=== PATIENT | female | born 1965 | race American Indian/Alaskan Native ===

== ENCOUNTER 2018-10-31 07:10 | Emergency (ER) | payer SELFPAY ==
[~2018-10-31] VITALS: Ht 162.6 cm; Wt 80.7 kg
[2018-10-31] MEDS ORDERED: SODIUM CHLORIDE 0.9% 1,000 ML IVB ONE (08:09)
[2018-10-31] MEDS ORDERED: ONDANSETRON HCL 4 MG/2 ML VIAL IV ONE (08:15)
[2018-10-31] MEDS ORDERED: KETOROLAC TROMETH 30 MG/ML 1ML VIAL IV ONE (08:15)
[2018-10-31 08:54] LABS: Urine Bacteria NONE SEEN /hpf (None Seen); Urine Blood Negative /uL (Negative); Urine Specific Gravity 1.009 (1.001-1.035); Urine WBC 1 /hpf (0 - 5)
[2018-10-31 09:28] LABS: Basophils # (auto) 0.1 uL; Basophils % (auto) 0.8 % (0.0-2.0); Eosinophils # (auto) 0.4 uL; Hematocrit 39.3 % (36.0-46.0); Hemoglobin 13.1 g/dL (12.2-16.2); Lymphocytes # (auto) 1.5 uL; Mean Corpuscular Hemoglobin 30.2 pg (28.0-32.0); Mean Corpuscular Hgb Conc. 33.4 g/dL (32.0-36.0); Mean Corpuscular Volume 90.2 fL (80.0-100.0); Monocytes # (auto) 0.5 uL; Monocytes % (auto) 7.3 % (0.0-12.0); Neutrophils # (auto) 4.8 uL; Neutrophils % (auto) 65.9 % (37.0-80.0); Nucleated Red Blood Cells % 0.1 %; Platelet Count (auto) 373 10^3/uL (140-450); Red Blood Cells 4.36 10^6/uL (4.0-5.20); Red Cell Distribution Width 15.9 % (11.8-14.3); White Blood Cell 7.3 10^3/uL (4.4-10.8)
[2018-10-31 09:45] VITALS: BP 128/88
[2018-10-31 09:45] LABS: Albumin 3.3 g/dL (3.4-5.0); Calcium 9.5 mg/dL (8.5-10.1); Potassium 3.6 mmol/L (3.5-5.1)
[2018-10-31 09:48] LABS: BUN/Creatinine Ratio 18.9; Bilirubin, Total 0.1 mg/dL (0.2-1.0); Total Protein 7.4 g/dL (6.4-8.2)
== END 2018-10-31 10:24 | disposition home or self-care (01) ==
LOC: ER 07:10
DX: N39.0 Urinary tract infection, site not specified (principal); R11.2 Nausea with vomiting, unspecified; E11.9 Type 2 diabetes mellitus without complications; I10 Essential (primary) hypertension; Z88.2 Allergy status to sulfonamides; Z88.1 Allergy status to other antibiotic agents
CPT/HCPCS: 36415; 71046; 74176; 80053; 81001; 82962; 85025; 94761; 96361; 96374; 96375; 99284; J1885; J2405; J7030

== ENCOUNTER 2019-08-17 07:25 | Emergency (ER) | payer OTHER ==
[~2019-08-17] VITALS: Ht 162.6 cm; Wt 81.6 kg
[2019-08-17 07:37] VITALS: BP 138/96
== END 2019-08-17 11:20 | disposition home or self-care (01) ==
LOC: EDBD 07:25 → ER 07:25
DX: S16.1XXA Strain of muscle, fascia and tendon at neck level, initial encounter (principal); I10 Essential (primary) hypertension; E11.9 Type 2 diabetes mellitus without complications; V49.9XXA Car occupant (driver) (passenger) injured in unspecified traffic accident, initial encounter; Y93.89 Activity, other specified; Y92.89 Other specified places as the place of occurrence of the external cause; Y99.8 Other external cause status
CPT/HCPCS: 71046; 72125

== ENCOUNTER 2021-10-15 09:42 | Emergency (ER) | payer OTHER ==
[~2021-10-15] VITALS: Ht 162.6 cm; Wt 73.5 kg
[2021-10-15] MEDS ORDERED: HYDROcodone-ACET 5/325MG TAB PO ONE (10:15)
[2021-10-15 10:33] LABS: Basophils # (auto) 0.1 10 ^3/uL (0-0.2); Basophils % (auto) 1.2 % (0.0-2.0); Eosinophils # (auto) 0.2 10 ^3/uL (0-0.8); Eosinophils % (auto) 2.5 % (0.0-7.0); Hematocrit 34.4 % (36.0-46.0); Hemoglobin 11.3 g/dL (12.2-16.2); Lymphocytes % (auto) 15.9 % (10.0-50.0); Mean Corpuscular Hgb Conc. 32.9 g/dL (32.0-36.0); Mean Corpuscular Volume 87.9 fL (80.0-100.0); Monocytes # (auto) 0.5 10 ^3/uL (0-1.3); Monocytes % (auto) 8.1 % (0.0-12.0); Neutrophils # (auto) 4.7 10 ^3/uL (1.6-8.6); Neutrophils % (auto) 72.3 % (37.0-80.0); Red Blood Cells 3.91 10^6/uL (4.0-5.20); Red Cell Distribution Width 17.2 % (11.8-14.3); White Blood Cell 6.5 10^3/uL (4.4-10.8)
[2021-10-15 11:02] LABS: Albumin 3.1 g/dL (3.4-5.0); Calcium 9.6 mg/dL (8.5-10.1)
[2021-10-15 11:08] LABS: BUN/Creatinine Ratio 18.1; Bilirubin, Total 0.5 mg/dL (0.2-1.0); Total Protein 7.3 g/dL (6.4-8.2)
[2021-10-15 11:37] LABS: Potassium 4.2 mmol/L (3.5-5.1)
[2021-10-15] MEDS ORDERED: METOCLOPRAMIDE HCL 5MG/ml INJ 2ml VIAL IV ONE (12:30)
[2021-10-15] MEDS ORDERED: ALUM & MAG HYDROX-SIMETH LIQ(MAALOX) 30 ML PO ONE (12:30)
[2021-10-15] MEDS ORDERED: LIDOCAINE VISCOUS 2% 15ML UD PO ONE (12:30)
[2021-10-15] MEDS ORDERED: METO-281 PO (16:46)
[2021-10-15 17:36] VITALS: BP 137/79
== END 2021-10-15 17:37 | disposition home or self-care (01) ==
LOC: ER 09:42
DX: K58.0 Irritable bowel syndrome with diarrhea (principal); E11.9 Type 2 diabetes mellitus without complications; I10 Essential (primary) hypertension; Z90.49 Acquired absence of other specified parts of digestive tract; Z88.2 Allergy status to sulfonamides; Z88.1 Allergy status to other antibiotic agents
CPT/HCPCS: 36415; 80053; 84484; 85025; 96374; 99285; J2765

== ENCOUNTER 2024-05-14 08:10 | Emergency (ER) | payer OTHER ==
[~2024-05-14] VITALS: Ht 162.6 cm; Wt 81.3 kg
[~2024-05-14 08:10] MED LIST: METO-281 PO
[2024-05-14 08:31] VITALS: BP 170/82; PULSE 92; RESP 16; O2SAT 98
[2024-05-14] MEDS: ACETAMINOPHEN 500 MG TAB PO ONE (08:51)
[2024-05-14] MEDS ORDERED: METH-1182 PO (09:42)
[2024-05-14] MEDS ORDERED: IBUP-1456 PO (09:42)
[2024-05-14 09:50] VITALS: TEMP 97.7
== END 2024-05-14 09:50 | disposition home or self-care (01) ==
LOC: EDUNIT# 08:10 → EDBD 08:10 → ER 08:10
DX: S46.812A Strain of other muscles, fascia and tendons at shoulder and upper arm level, left arm, initial encounter (principal); S76.012A Strain of muscle, fascia and tendon of left hip, initial encounter; S83.8X2A Sprain of other specified parts of left knee, initial encounter; I10 Essential (primary) hypertension; E11.9 Type 2 diabetes mellitus without complications; Z86.2 Personal history of diseases of the blood and blood-forming organs and certain disorders involving the immune mechanism; Z90.49 Acquired absence of other specified parts of digestive tract; Z88.2 Allergy status to sulfonamides; Z88.8 Allergy status to other drugs, medicaments and biological substances; Z79.1 Long term (current) use of non-steroidal anti-inflammatories (NSAID); Z79.899 Other long term (current) drug therapy; W01.0XXA Fall on same level from slipping, tripping and stumbling without subsequent striking against object, initial encounter; Y93.89 Activity, other specified; Y92.89 Other specified places as the place of occurrence of the external cause; Y99.0 Civilian activity done for income or pay
CPT/HCPCS: 73030; 73502; 73562

== ENCOUNTER 2024-08-19 12:07 | Emergency (ER) | payer OTHER ==
[~2024-08-19] VITALS: Ht 162.6 cm; Wt 80.9 kg
[~2024-08-19 12:07] MED LIST changes: +IBUP-1456 PO; +METH-1182 PO
--- NOTE | 2024-08-19 13:37 | ED.PDOC ---
History of Present Illness HPI Comments 59-year-old female with PMHx DM, HTN, Thyroid presents with a chief complaint of eye itchiness and throat swelling s/p exposure to allergen and hyperglycemia x 1 hour. 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 Patient reports that they called EMS and the swelling started to subside and when they checked her sugar, she was at 479. Patient is reporting that right now she has eye itchiness and some throat swelling, but is sating at 98% and able to speak in full complete sentences. No other symptoms or modifying factors present at this time. Chief Complaint: Hyperglycemia Time Seen by MD: 13:29 Primary Care Provider: MAGALI Chaney Notes: Nurses Notes, Medications, Allergies Allergies: Coded Allergies: Levothyroxine (Verified Adverse Reaction, Intermediate, 10/31/18) Sulfa Antibiotics (Verified Adverse Reaction, Mild, 10/31/18) Home Meds Active Scripts Methylprednisolone (Medrol Dosepak) 4 Mg Prince, 4 MG PO UD, #21 TAB UAD Prov:KANNAN VILLA MD 08/19/24 Methocarbamol (Methocarbamol) 750 Mg Tab, 750 MG PO BID, #20 TAB Prov:LLOYD HU 05/14/24 Ibuprofen (Ibuprofen) 800 Mg Tab, 1 TAB PO TID, #30 TAB Prov:LLOYD HU 05/14/24 Metoclopramide Hcl (Reglan) 10 Mg Tab, 10 MG PO QID PRN for 3 Days, #12 TAB Prov:TOBY WATTERS MD 10/15/21 Information Source: Patient Mode of Arrival: Ambulatory Severity: Moderate Timing: Minutes Duration: Since onset Prehospital treatment: None Past Medical History PAST MEDICAL HISTORY: Anemia, DM, HTN, Thyroid Surgical History: Cholecystectomy FINANCIAL ASSISTANCE ADVISOR History: No Pertinent FINANCIAL ASSISTANCE ADVISOR History Family History Family History: Family hx of Cancer Social History Smoker: Non-Smoker Alcohol: Occasionally Drugs: Denies Drug Use Lives In: Home Constitutional: denies: chills, diaphoresis, fatigue, fever, malaise, sweats, weakness, others EENTM: reports: eye pain, throat swelling; denies: blurred vision, double vision, ear bleeding, ear discharge, ear drainage, ear pain, ear ringing, eye redness, hearing loss, mouth pain, mouth swelling, nasal discharge, nose bleeding, nose congestion, nose pain, photophobia, tearing, throat pain, voice changes, others Respiratory: denies: cough, hemoptysis, orthopnea, SOB at rest, shortness of breath, SOB with excertion, stridor, wheezing, others Cardiovascular: denies: chest pain, dizzy spells, diaphoresis, Dyspnea on exertion, edema, irregular heart beat, left arm pain, lightheadedness, palpitations, PND, syncope, others Gastrointestinal: denies: abdomen distended, abdominal pain, blood streaked bowels, constipated, diarrhea, dysphagia, difficulty swallowing, hematemesis, melena, nausea, poor appetite, poor fluid intake, rectal bleeding, rectal pain, vomiting, others Genitourinary: denies: abnormal vagina bleeding, burning, dyspareunia, dysuria, flank pain, frequency, hematuria, incontinence, pain, , vagina discharge, urgency, others Neurological: denies: dizziness, fainting, headache, left sided numbness, left sided weakness, numbness, paresthesia, pre-existing deficit, right sided numbness, right sided weakness, seizure, speech problems, tingling, tremors, weakness, others Musculoskeletal: denies: back pain, gout, joint pain, joint swelling, muscle pain, muscle stiffness, neck pain, others Integumetry: denies: bruises, change in color, change in hair/nails, dryness, laceration, lesions, lumps, rash, wounds, others Allergic/Immunocompromised: denies: Difficulty Healing, Frequent Infections, Hives, Itching, others Hematologic/Lymphatic: denies: anemia, blood clots, easy bleeding, easy bruising, swollen glands, others Endocrine: reports: others (HYPERGLYCEMIA); denies: excessive hunger, excessive sweating, excessive thirst, excessive urination, flushing, intolerance to cold, intolerance to heat, unexplained weight gain, unexplained weight loss Psychiatric: denies: anxiety, bipolar disorder, depression, hopeless, panic disorder, schizophrenia, sleepless, suicidal, others All Other Systems: Reviewed and Negative Physical Exam General Appearance: No Apparent Distress HEENT: Pharynx Normal, TMs Normal, Other (Periorbital swelling and itching) Neck: Full Range of Motion, Non-Tender, Normal, Normal Inspection Respiratory: Chest Non-Tender, Lungs Clear, No Accessory Muscle Use, No Respiratory Distress, Normal Breath Sounds Cardiovascular: No Edema, No JVD, No Murmur, No Gallop, Normal Peripheral Pulses, Regular Rate/Rhythm Breast Exam: Deferred Gastrointestinal: No Organomegaly, Non Tender, No Pulsatile Mass, Normal Bowel Sounds, Soft Genitalia: Deferred Pelvic: Deferred Rectal: Deferred Extremities: No calf tenderness, Normal capillary refill, Normal inspection, Normal range of motion, Non-tender, No pedal edema Musculoskeletal : Apperance: Normal Neurologic: Alert, core inserter II-XII nml as Tested, No Motor Deficits, Normal Affect, Normal Mood, No Sensory Deficits Cerebellar Function: Normal Reflexes: Normal Skin: Dry, Normal Color, Warm Lymphatic: No Adenopathy Was a procedure done? Was a procedure done?: No Differential Dx Considerations may include: Allergic reaction X-Ray, Labs, Meds, VS Vital Signs Date Time Temp Pulse Resp B/P (MAP) Pulse Ox O2 Delivery O2 Flow Rate FiO2 08/19/24 14:01 98.5 87 16 152/78 (102) 99 98.5 08/19/24 14:01 87 16 99 Room Air 08/19/24 13:28 98.2 89 18 156/82 (106) 98 Lab Test 08/19/24 13:16 08/19/24 13:13 Range/Units POC Glucose 378 H 376 H 70-106 mg/dl Current Medications Medications (Trade) Dose Ordered Sig/Klaudia Route Start Time Stop Time Status Last Admin Diphenhydramine HCl (Benadryl Capsule) 50 mg ONCE ONCE PO 08/19/24 13:45 08/19/24 13:46 DC 08/19/24 14:00 Prednisone 40 mg ONCE ONCE PO 08/19/24 13:45 08/19/24 13:46 DC 08/19/24 14:00 The patient was given Benadryl 50 mg p.o. The patient was given prednisone 40 mg p.o. The patient was somewhat hyperglycemic The patient states that she is going to take her insulin when she gets home The patient was in no distress The patient was having some improvement The patient will follow up with the primary care doctor The patient will return to the emergency department's condition worsens The diagnosis is acute allergic reaction Time of 1ST Reevaluation: 13:59 Reevaluation 1ST: Unchanged Patient Education/Counseling: Diagnosis, Treatment, Prognosis, Need For Follow Up Family Education/Counseling: Diagnosis, Treatment, Prognosis, Need For Follow Up Departure 1 Departure Time of Disposition: 14:42 Impression: Primary Impression: Acute allergic reaction Qualified Codes: T78.40XA - Allergy, unspecified, initial encounter Disposition: HOME / SELF CARE / HOMELESS Condition: Fair e-Prescriptions Methylprednisolone (Medrol Dosepak) 4 Mg Prince 4 MG PO UD, #21 TAB UAD Prov: KANNAN VILLA MD 08/19/24 Discharged With: Self Critical Care Note Critical Care Time?: No Stability Stability form required: No Heart Score Heart Score: Heart Score Response (Comments) Value History N/A 0 EKG N/A 0 Age N/A 0 Risk Factors N/A 0 Troponin N/A 0 Total 0 I personally scribed for KANNAN VILLA MD ([email or web address]) on 08/19/24 at 13:37. Electronically submitted by Pete Grant ([email or web address]). KANNAN VILLA MD Aug 19, 2024 13:37
[2024-08-19] MEDS: predniSONE 20 MG TAB PO ONE (14:00)
[2024-08-19] MEDS: diphenhdrAMINE HCL 25 MG CAP PO ONE (14:00)
[2024-08-19 14:01] VITALS: BP 152/78; PULSE 87; RESP 16; TEMP 98.5; O2SAT 99
[2024-08-19] MEDS ORDERED: METH4PAK PO (14:36)
== END 2024-08-19 14:48 | disposition home or self-care (01) ==
LOC: ER 12:13
DX: T78.40XA Allergy, unspecified, initial encounter (principal); I10 Essential (primary) hypertension; E11.9 Type 2 diabetes mellitus without complications; E03.9 Hypothyroidism, unspecified; Z86.2 Personal history of diseases of the blood and blood-forming organs and certain disorders involving the immune mechanism; Z90.49 Acquired absence of other specified parts of digestive tract; Z79.1 Long term (current) use of non-steroidal anti-inflammatories (NSAID); Z79.899 Other long term (current) drug therapy; Z88.2 Allergy status to sulfonamides; X58.XXXA Exposure to other specified factors, initial encounter
CPT/HCPCS: 82962; 99283; J7512